=== PATIENT | male | born 1985 | race Two or more races ===

== ENCOUNTER 2022-03-17 11:38 | Inpatient (IN) | payer OTHER, SELFPAY ==
[2022-03-17 11:48] VITALS: BP 120/80; PULSE 68; O2SAT 97
[2022-03-17 11:58] VITALS: BP 121/81; PULSE 76; RESP 18; TEMP 36.6; O2SAT 99; BMI 25.0
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
[2022-03-17] MEDS: LORazepam 1 MG TABLET PO (12:27)
[2022-03-17 12:51] LABS: Barbiturates, Urine Not Detected (Not Detect); Benzodiazepines Screen Urine Not Detected (Not Detect); Cannabinoid Screen Urine POSITIVE (Not Detect); Cocaine Screen Urine Not Detected (Not Detect); Fentanyl, urine Not Detected (Not Detect); Opiate Screen Urine Not Detected (Not Detect); Phencyclidine Screen Urine Not Detected (Not Detect)
[2022-03-17 12:56] LABS: Amphetamine Screen Urine Not Detected (Not Detect)
[2022-03-17 12:57] LABS: COVID-19 Test Negative (Negative); IDNOW Serial# 08D9AD1C
[2022-03-17 13:18] LABS: MANUAL DIFF FLAG NO
[2022-03-17 13:21] LABS: Basophils Percent Auto 0.5 % (0-2); Eosinophils Percent Auto 0.7 % (0-4); Hematocrit 44.8 % (42.0-52.0); Hemoglobin 15.4 g/dl (14.0-18.0); Imm Gran Abs Auto 0.01 X10*3/uL (0.00-0.03); Imm Gran Pct Auto 0.2 % (0.0-0.4); Lymphocytes Absolute Auto 1.4 X10*3/uL (1.2-4.9); Lymphocytes Percent Auto 24.8 % (20-40); Mean Corpuscular HGB Conc 34.4 g/dl (31.0-36.0); Mean Corpuscular Hemoglobin 31.5 pg (27.0-33.0); Mean Corpuscular Volume 91.6 fL (80.0-98.0); Mean Platelet Volume 8.8 fL (9.4-12.4); Monocytes Absolute Auto 0.4 X10*3/uL (0.1-1.2); Monocytes Percent Auto 6.3 % (2-11); Neutrophils Absolute Auto 3.8 x10*3/uL (2.0-8.3); Neutrophils Percent Auto 67.5 % (45-73); Platelet Count 251 X10*3/uL (160-400); Red Blood Count 4.89 X10*6/uL (4.60-5.80); Red Cell Distribution Width 12.6 % (11.0-16.0); White Blood Count 5.6 X10*3/uL (4.8-10.8)
[2022-03-17 13:51] LABS: Alanine Aminotransferase 20 U/L (0-40); Albumin Level 4.1 g/dL (3.5-5.0); Alkaline Phosphatase 61 U/L (39-117); Anion Gap 10 (12-20); Aspartate Amino Transferase 18 U/L (5-37); Bilirubin Direct 0.7 mg/dL (0.0-0.5); Blood Urea Nitrogen 15 mg/dL (9-16); Calcium 8.9 mg/dL (8.4-10.2); Carbon Dioxide 25 mmol/L (22-29); Chloride 105 mmol/L (96-108); Creatinine Clr Calc Pharmacy 124.7; Estimated Glomerular Filt Rate > 60; Ethanol < 10 mg/dL; Glucose Random 73 mg/dL (60-115); Sodium 136 mmol/L (135-145); Total Protein 6.9 g/dL (6.5-8.0)
--- NOTE | 2022-03-17 15:39 | PC.NURSE ---
Nurse to Nurse given to Kasandra Alcala RN (M5 Clinical Coordinator). Plan for M5 admission, awaiting room assignment.
[2022-03-17 15:42] VITALS: BP 102/51; PULSE 62; RESP 15; TEMP 36.6; O2SAT 100
--- NOTE | 2022-03-17 18:00 | PC.NURSE ---
Patient was on the phone with his (Emma Ramsey). Phone was then passed to this RN. Emma stated to this RN have the public health social worker call me. He can't get any medications, or nothing without my permission! I know that, so take my phone number! Emma's #: . Emma aware of plan to admit Mckinley to M5, with consent to discuss by Mckinley. Emma stated good! I don't want him home, and I don't want him anywhere near me! I'm gonna bring him some clothes and a book because he's [employer] and I'll drop it off . Phone then given back to Mckinley.
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
[2022-03-17] MEDS: traZODone HCL 50 MG TABLET PO (21:06)
[2022-03-18 06:00] VITALS: BP 109/62; PULSE 71; RESP 16; TEMP 36.5; O2SAT 100
[2022-03-18] MEDS: hydrOXYzine HCL 25 MG TABLET PO (08:17)
[2022-03-18 08:36] LABS: Alanine Aminotransferase 21 U/L (0-40); Albumin Level 4.2 g/dL (3.5-5.0); Alkaline Phosphatase 61 U/L (39-117); Anion Gap 12 (12-20); Aspartate Amino Transferase 19 U/L (5-37); Bilirubin Total 2.4 mg/dL (0.0-1.0); Blood Urea Nitrogen 18 mg/dL (9-16); Calcium 8.9 mg/dL (8.4-10.2); Carbon Dioxide 26 mmol/L (22-29); Chloride 104 mmol/L (96-108); Cholesterol 134 mg/dL; Creatinine Clr Calc Pharmacy 106.9; Estimated Glomerular Filt Rate > 60; Glucose Fasting 77 mg/dL (60-99); HDL Cholesterol 38 mg/dL; LDL Cholesterol Calculated 85 mg/dl; Potassium 4.2 mmol/L (3.3-5.1); Sodium 138 mmol/L (135-145); Total Protein 7.1 g/dL (6.5-8.0); Triglycerides 59 mg/dL
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
[2022-03-18] MEDS: lamoTRIgine 25 MG TABLET PO (15:32)
[2022-03-18 18:00] VITALS: BP 126/75; PULSE 82; RESP 14
[2022-03-18] MEDS: Prazosin HCL 1 MG CAPSULE PO (21:09)
[2022-03-18] MEDS: traZODone HCL 50 MG TABLET PO (21:09)
[2022-03-19 06:00] VITALS: BP 152/65; PULSE 81; TEMP 36.2; O2SAT 97
[2022-03-19] MEDS: lamoTRIgine 25 MG TABLET PO (08:47)
--- NOTE | 2022-03-19 13:40 | P.PNPSI_ITS ---
Subjective Subjective Date of Service: 03/19/22 Reason For Visit: SI,SEC 12 PER EMS Interim History: Patient reports that he is feeling better. His came to the unit to visit him yesterday and he says it was a positive interaction. She says she no longer wants a divorce. He was happy to hear this however is holding off being to excited about it for now. Patient reports that he slept well last night and no nightmares. He denies any SI at all and reiterates that he feels really selfish, really guilty for his attempt; he referred to his children and how awful a would be to have made them father less. Patient reports medications are well tolerated. Patient said he would love to discharge as soon as possible but accepts that more time will be needed. Patient has a court case via zoom on 03/21 at 10:00 regarding a custody case and he wants help attending. Mental Status Exam Mental Status Exam Narrative: Pt is alert and oriented; behavior is cooperative, friendly and calm; patient is not in distress; dressed in hospital gown, head air and facial hair well groomed and with good adequate hygiene; mood is described as good and affect congruent; eye contact appropriate; Speech is normal rate, volume and prosody and not pressured; no psychomotor agitation/retardation present; thought process is organized and goal directed; Thought content is on tx and regret for recent attempt; otherwise pertinent to relevant topics and without any delusional content, paranoid ideations or grandiosity; denies any SI/HI. There is no evidence of perceptual disturbance. Patients insight and judgment appear intact. Diagnostics Vital Signs (24Hr): Vital Signs - 24 hr 03/18/22 18:00 03/19/22 06:00 Temperature 97.1 F Pulse Rate 82 81 Respiratory Rate 14 Blood Pressure 126/75 152/65 H Pulse Oximetry 97 Oxygen Delivery Method Room Air BMI result Body Mass Index 25.0 Labs Results: 03/17/22 13:13 03/18/22 08:13 Labs: Laboratory Results - last 48 hr 03/17/22 03/18/22 13:13 08:13 Sodium 136 138 Potassium 4.0 4.2 Chloride 105 104 Carbon Dioxide 25 26 Anion Gap 10 L 12 BUN 15 18 H Creatinine 0.78 0.91 Estim Creat Clear Calc 124.7 106.9 Estimated GFR > 60 > 60 Random Glucose 73 Fasting Glucose 77 Calcium 8.9 8.9 Total Bilirubin 2.0 H 2.4 H Direct Bilirubin 0.7 H AST 18 19 ALT 20 21 Alkaline Phosphatase 61 61 Total Protein 6.9 7.1 Albumin 4.1 4.2 Triglycerides 59 Cholesterol 134 LDL Cholesterol, Calc 85 HDL Cholesterol 38 Ethyl Alcohol < 10 Medications Medications Current Medications Acetaminophen (Acetaminophen 325 Mg Tablet) 650 mg PO Q6H PRN PRN Reason: Headache/Pain Mild Scale (1-3) Al Hydroxide/Mg Hydroxide (Magnesium Hydrox/Alum Hydrox 30 Ml Oral.Susp) 30 ml PO Q6H PRN PRN Reason: Heartburn/Nausea Hydroxyzine HCl (Hydroxyzine Hcl 25 Mg Tablet) 25 mg PO Q6H PRN PRN Reason: Anxiety Last Admin: 03/18/22 08:17 Dose: 25 mg Lamotrigine (Lamotrigine 25 Mg Tablet) 25 mg PO DAILY ARMIDA Last Admin: 03/19/22 08:47 Dose: 25 mg Magnesium Hydroxide (Milk Of Magnesia 30 Ml Oral.Susp) 30 ml PO DAILY PRN PRN Reason: Constipation Non-Formulary Medication ([place] Relief Throat Lozenge) 1 lozenge BUCCAL Q2H PRN PRN Reason: Sore Throat Prazosin HCl (Prazosin Hcl 1 Mg Capsule) 1 mg PO BEDTIME ARMIDA; Protocol Last Admin: 03/18/22 21:09 Dose: 1 mg Trazodone HCl (Trazodone Hcl 50 Mg Tablet) 50 mg PO BEDTIME PRN PRN Reason: Insomnia Last Admin: 03/18/22 21:09 Dose: 50 mg Allergies Allergies Allergy/AdvReac Type Severity Reaction Status Date / Time No Known Allergies Allergy Verified 03/17/22 11:57 Assessment & Plan Assessment & Plan (1) Adjustment disorder with mixed disturbance of emotions and conduct: Status: Acute Code(s): F43.25 - Adjustment disorder with mixed disturbance of emotions and conduct (2) Chronic post-traumatic stress disorder (PTSD): Status: Acute Code(s): F43.12 - Post-traumatic stress disorder, chronic (3) Bipolar II disorder: Status: Acute Code(s): F31.81 - Bipolar II disorder Plan Patient is a 36-year-old male with history of PTSD mood lability who presents for suicide attempt in the face of marital strife and other psychosocial stressors. -patient has history of trauma and ongoing PTSD symptoms which seem to cause a chronic anxiety that can sometimes become overwhelming -patient endorses history that seems to indicate bipolar type 2 disorder making this a provisional diagnosis -patient regrets his actions and is glad he is alive; is feeling very guilty that he almost made his children father less. -patient discussed treatment and screenplay writer reviewed risks/side effects of Lamictal, prazosin and trazodone. Patient wants to start a trial of these medications; patient said he would also like a therapist and outpatient prescriber. Patient also gave permission to talk to his friend Garrett flowers and his current for collateral -03/19 mood has improved; has reconciled with his and divorce is no longer pending, she said she just said this and anger. No SI at all and patient remains regretful. Tolerating medications well. He remains eager for therapist post discharge. Patient has a history of impulsivity and while this attempt was lethal, and planned starting earlier that day, it was enacted during a time of extreme emotional distress which at this point has fully resolved. Patient has a 3 day notice in and would like to discharge, saying that he is safe and has no SI at all, very regretful for his actions. 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 So far he has remained stable, has good insight and improved judgment and demonstrating good behavioral and impulse control. Education Specialist will gather collateral. If patient remains stable and collateral does not reveal anything unexpected, will likely discharge patient early next week as it appears he is no longer an imminent risk for harm to self or others and does not rise to the level of involuntary commitment. Plan: Q 15 minute checks 3 day notice Start Lamictal 25 mg daily Start prazosin 1 mg q.h.s. for nightmares Continue hydroxyzine p.r.n. for anxiety which patient said was helpful Will gather collateral Social work to help set up outpatient support I spent minutes with the patient and/or on the patient floor today, greater than?50% of which was spent counseling/coordinating care. Patient educated on: diagnosis, medication risk/benefits and therapeutic strategies Informed Consent: understands Reason for contiued inpatient stay Substantial Risk for: rapid decompensation
[2022-03-19 18:00] VITALS: BP 121/64; PULSE 90; RESP 16; O2SAT 98
[2022-03-19] MEDS: traZODone HCL 50 MG TABLET PO (20:14)
[2022-03-19] MEDS: Prazosin HCL 1 MG CAPSULE PO (20:14)
[2022-03-20] MEDS: traZODone HCL 50 MG TABLET PO ×2 (00:08→22:02)
[2022-03-20 06:00] VITALS: BP 127/58; PULSE 99; TEMP 36.4; O2SAT 99
[2022-03-20] MEDS: lamoTRIgine 25 MG TABLET PO (08:50)
--- NOTE | 2022-03-20 18:04 | HO.PSYCHPN ---
Subjective Subjective Date of Service: 03/20/22 Reason For Visit: SI,SEC 12 PER EMS Interim History: Patient reports good mood, no SI, remains feeling that all these emotions and things are behind him and resolved. Continues to express gratitude that he is doing well and his loving concern for his children. Some frustration with his current and he thinks that she might be having a manic episode as she has not slept for a few days. Patient asks for help getting to zoom meeting for court tomorrow. He feels he has been able to process his relationship and remains accepting that the relationship may be over and that it may be best that way. Tolerating medications well; sleeping well. Reiterates he would like to go as soon as possible but very much wants a therapist in outpatient prescriber [employer] briefly talked to Emma his but phone call was cut off and television script writer could not get a hold of her again. [employer] also called Florin[employer], patient's friend for collateral but his phone service is shut off Patient gave television script writer permission to call his mother said she knows him well and would probably be a good source of collateral. He gave television script writer his mother's name and number. Mental Status Exam Mental Status Exam Narrative: Pt is alert and oriented; behavior is cooperative, friendly and calm; patient is not in distress; dressed in hospital gown, head air and facial hair well groomed and with good adequate hygiene; mood is described as good and affect congruent; eye contact appropriate; Speech is normal rate, volume and prosody and not pressured; no psychomotor agitation/retardation present; thought process is organized and goal directed; Thought content is on tx and regret for recent attempt; otherwise pertinent to relevant topics and without any delusional content, paranoid ideations or grandiosity; denies any SI/HI. There is no evidence of perceptual disturbance. Patients insight and judgment are intact. Diagnostics Vital Signs (24Hr): Vital Signs - 24 hr 03/20/22 06:00 Temperature 97.5 F Pulse Rate 99 Blood Pressure 127/58 L Pulse Oximetry 99 Oxygen Delivery Method Room Air BMI result Body Mass Index 25.0 Labs Results: 03/17/22 13:13 03/18/22 08:13 Medications Medications Current Medications Acetaminophen (Acetaminophen 325 Mg Tablet) 650 mg PO Q6H PRN PRN Reason: Headache/Pain Mild Scale (1-3) Al Hydroxide/Mg Hydroxide (Magnesium Hydrox/Alum Hydrox 30 Ml Oral.Susp) 30 ml PO Q6H PRN PRN Reason: Heartburn/Nausea Hydroxyzine HCl (Hydroxyzine Hcl 25 Mg Tablet) 25 mg PO Q6H PRN PRN Reason: Anxiety Last Admin: 03/18/22 08:17 Dose: 25 mg Lamotrigine (Lamotrigine 25 Mg Tablet) 25 mg PO DAILY ARMIDA Last Admin: 03/20/22 08:50 Dose: 25 mg Magnesium Hydroxide (Milk Of Magnesia 30 Ml Oral.Susp) 30 ml PO DAILY PRN PRN Reason: Constipation Non-Formulary Medication ([place] Relief Throat Lozenge) 1 lozenge BUCCAL Q2H PRN PRN Reason: Sore Throat Prazosin HCl (Prazosin Hcl 1 Mg Capsule) 1 mg PO BEDTIME ARMIDA; Protocol Last Admin: 03/19/22 20:14 Dose: 1 mg Trazodone HCl (Trazodone Hcl 50 Mg Tablet) 50 mg PO BEDTIME PRN PRN Reason: Insomnia Last Admin: 03/20/22 00:08 Dose: 50 mg Allergies Allergies Allergy/AdvReac Type Severity Reaction Status Date / Time No Known Allergies Allergy Verified 03/17/22 11:57 Assessment & Plan Assessment & Plan (1) Adjustment disorder with mixed disturbance of emotions and conduct: Status: Acute Code(s): F43.25 - Adjustment disorder with mixed disturbance of emotions and conduct (2) Chronic post-traumatic stress disorder (PTSD): Status: Acute Code(s): F43.12 - Post-traumatic stress disorder, chronic (3) Bipolar II disorder: Status: Acute Code(s): F31.81 - Bipolar II disorder Plan Patient is a 36-year-old male with history of PTSD mood lability who presents for suicide attempt in the face of marital strife and other psychosocial stressors. -patient has history of trauma and ongoing PTSD symptoms which seem to cause a chronic anxiety that can sometimes become overwhelming -patient endorses history that seems to indicate bipolar type 2 disorder making this a provisional diagnosis -patient regrets his actions and is glad he is alive; is feeling very guilty that he almost made his children father less. -patient discussed treatment and television script writer reviewed risks/side effects of Lamictal, prazosin and trazodone. Patient wants to start a trial of these medications; patient said he would also like a therapist and outpatient prescriber. Patient also gave permission to talk to his friend Garrett [employer] and his current for collateral -03/19 mood has improved; has reconciled with his and divorce is no longer pending, she said she just said this and anger. No SI at all and patient remains regretful. Tolerating medications well. He remains eager for therapist post discharge. Patient has a history of impulsivity and while this attempt was lethal, and planned starting earlier that day, it was enacted during a time of extreme emotional distress which at this point has fully resolved. Patient has a 3 day notice in and would like to discharge, saying that he is safe and has no SI at all, very regretful for his actions. 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 So far he has remained stable, has good insight and improved judgment and demonstrating good behavioral and impulse control. [employer] will gather collateral. If patient remains stable and collateral does not reveal anything unexpected, will likely discharge patient early next week as it appears he is no longer an imminent risk for harm to self or others and does not rise to the level of involuntary commitment. 03/20 patient remains stable, good mood no SI; engaged in 1 on 1 sessions, attends group, remains in good behavioral and impulse control and appropriate with peers and staff. Tolerating medications well, sleeping and eating well. [employer] is having trouble getting hold of collateral. Patient reports that the emotional dysregulation of last week remains fully resolved; he also consistently talks about continuing treatment post discharge. Patient is very likely at baseline. [employer] would like to get collateral to complete the picture however as patient has 3 day notice approaches, and he remains stable, will very likely proceed with discharge. Plan: Q 15 minute checks 3 day notice Continue Lamictal 25 mg daily Continue prazosin 1 mg q.h.s. for nightmares Continue hydroxyzine p.r.n. for anxiety which patient said was helpful Will gather collateral Social work to help set up outpatient support I spent minutes with the patient and/or on the patient floor today, greater than?50% of which was spent counseling/coordinating care. Patient educated on: diagnosis, medication risk/benefits and therapeutic strategies Informed Consent: understands Reason for contiued inpatient stay Substantial Risk for: stable for discharge
[2022-03-20 21:55] VITALS: BP 146/63; PULSE 98; TEMP 36.8; O2SAT 98
[2022-03-20] MEDS: Prazosin HCL 1 MG CAPSULE PO (22:02)
[2022-03-21 06:00] VITALS: BP 128/62; PULSE 83; RESP 16; TEMP 36.3; O2SAT 99
[2022-03-21] MEDS: lamoTRIgine 25 MG TABLET PO (08:41)
--- NOTE | 2022-03-21 15:33 | HO.PSYCHPN ---
Subjective Subjective Date of Service: 03/21/22 Reason For Visit: SI,SEC 12 PER EMS Interim History: Patient remains in good mood. No SI; bright affect and future oriented. Patient is looking forward to discharge tomorrow. Mill Laborer spoke with his mother who says he does not own any guns has no Other history Of using guns. Patient informed telegraphic typewriter operator that his was Just psychiatrically hospitalized. Patient continues to feel at peace with their relationship and it is ambiguous outcome Mental Status Exam Mental Status Exam Narrative: Pt is alert and oriented; behavior is cooperative, friendly and calm; patient is not in distress; dressed in hospital gown, head air and facial hair well groomed and with good adequate hygiene; mood is described as good and affect congruent, brighter; eye contact appropriate; Speech is normal rate, volume and prosody and not pressured; no psychomotor agitation/retardation present; thought process is organized and goal directed; Thought content is on tx and regret for recent attempt; otherwise pertinent to relevant topics and without any delusional content, paranoid ideations or grandiosity; denies any SI/HI. There is no evidence of perceptual disturbance. Patients insight and judgment are intact. Diagnostics Vital Signs (24Hr): Vital Signs - 24 hr 03/20/22 21:55 03/21/22 06:00 Temperature 98.2 F 97.4 F Pulse Rate 98 83 Respiratory Rate 16 Blood Pressure 146/63 H 128/62 Pulse Oximetry 98 99 Oxygen Delivery Method Room Air BMI result Body Mass Index 25.0 Labs Results: 03/17/22 13:13 03/18/22 08:13 Medications Medications Current Medications Acetaminophen (Acetaminophen 325 Mg Tablet) 650 mg PO Q6H PRN PRN Reason: Headache/Pain Mild Scale (1-3) Al Hydroxide/Mg Hydroxide (Magnesium Hydrox/Alum Hydrox 30 Ml Oral.Susp) 30 ml PO Q6H PRN PRN Reason: Heartburn/Nausea Hydroxyzine HCl (Hydroxyzine Hcl 25 Mg Tablet) 25 mg PO Q6H PRN PRN Reason: Anxiety Last Admin: 03/18/22 08:17 Dose: 25 mg Lamotrigine (Lamotrigine 25 Mg Tablet) 25 mg PO DAILY ARMIDA Last Admin: 03/21/22 08:41 Dose: 25 mg Magnesium Hydroxide (Milk Of Magnesia 30 Ml Oral.Susp) 30 ml PO DAILY PRN PRN Reason: Constipation Non-Formulary Medication ([place] Relief Throat Lozenge) 1 lozenge BUCCAL Q2H PRN PRN Reason: Sore Throat Prazosin HCl (Prazosin Hcl 1 Mg Capsule) 1 mg PO BEDTIME ARMIDA; Protocol Last Admin: 03/20/22 22:02 Dose: 1 mg Trazodone HCl (Trazodone Hcl 50 Mg Tablet) 50 mg PO BEDTIME PRN PRN Reason: Insomnia Last Admin: 03/20/22 22:02 Dose: 50 mg Allergies Allergies Allergy/AdvReac Type Severity Reaction Status Date / Time No Known Allergies Allergy Verified 03/17/22 11:57 Assessment & Plan Assessment & Plan (1) Adjustment disorder with mixed disturbance of emotions and conduct: Status: Acute Code(s): F43.25 - Adjustment disorder with mixed disturbance of emotions and conduct (2) Chronic post-traumatic stress disorder (PTSD): Status: Acute Code(s): F43.12 - Post-traumatic stress disorder, chronic (3) Bipolar II disorder: Status: Acute Code(s): F31.81 - Bipolar II disorder Plan Patient is a 36-year-old male with history of PTSD mood lability who presents for suicide attempt in the face of marital strife and other psychosocial stressors. -patient has history of trauma and ongoing PTSD symptoms which seem to cause a chronic anxiety that can sometimes become overwhelming -patient endorses history that seems to indicate bipolar type 2 disorder making this a provisional diagnosis -patient regrets his actions and is glad he is alive; is feeling very guilty that he almost made his children father less. -patient discussed treatment and telegraphic typewriter operator reviewed risks/side effects of Lamictal, prazosin and trazodone. Patient wants to start a trial of these medications; patient said he would also like a therapist and outpatient prescriber. Patient also gave permission to talk to his friend Garrett [employer] and his current for collateral -03/19 mood has improved; has reconciled with his and divorce is no longer pending, she said she just said this and anger. No SI at all and patient remains regretful. Tolerating medications well. He remains eager for therapist post discharge. Patient has a history of impulsivity and while this attempt was lethal, and planned starting earlier that day, it was enacted during a time of extreme emotional distress which at this point has fully resolved. Patient has a 3 day notice in and would like to discharge, saying that he is safe and has no SI at all, very regretful for his actions. 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 So far he has remained stable, has good insight and improved judgment and demonstrating good behavioral and impulse control. [employer] will gather collateral. If patient remains stable and collateral does not reveal anything unexpected, will likely discharge patient early next week as it appears he is no longer an imminent risk for harm to self or others and does not rise to the level of involuntary commitment. 03/20 patient remains stable, good mood no SI; engaged in 1 on 1 sessions, attends group, remains in good behavioral and impulse control and appropriate with peers and staff. Tolerating medications well, sleeping and eating well. [employer] is having trouble getting hold of collateral. Patient reports that the emotional dysregulation of last week remains fully resolved; he also consistently talks about continuing treatment post discharge. Patient is very likely at baseline. [employer] would like to get collateral to complete the picture however as patient has 3 day notice approaches, and he remains stable, will very likely proceed with discharge. 03/21 Patient remains stable, in good mood, with bright affect and future oriented. His mother confirms that he has no other history with using guns and to her knowledge has no guns at the house. Patient would like to discharge tomorrow and his 3 day notice is pending. Patient is grateful for help, we says will continue taking medication and is looking forward to starting therapy as an outpatient. Mill Laborer agrees that patient's episode of mood dysregulation has and remains fully resolved. Patient is not in imminent risk for harm to self or others and his request for discharge honored. Plan: Q 15 minute checks 3 day notice Continue Lamictal 25 mg daily Continue prazosin 1 mg q.h.s. for nightmares Continue hydroxyzine p.r.n. for anxiety which patient said was helpful Will gather collateral Social work to help set up outpatient support I spent minutes with the patient and/or on the patient floor today, greater than?50% of which was spent counseling/coordinating care. Patient educated on: diagnosis and therapeutic strategies Informed Consent: understands Reason for contiued inpatient stay Substantial Risk for: stable for discharge
[2022-03-21 18:35] VITALS: BP 119/77; PULSE 86; RESP 14
[2022-03-21] MEDS: traZODone HCL 50 MG TABLET PO (22:40)
[2022-03-21] MEDS: Prazosin HCL 1 MG CAPSULE PO (22:40)
[2022-03-22 06:00] VITALS: BP 124/64; PULSE 92; RESP 16; TEMP 36.3; O2SAT 99
[2022-03-22] MEDS: lamoTRIgine 25 MG TABLET PO (08:01)
--- NOTE | 2022-03-22 09:31 | PM.PSYDC ---
DS: Providers Provider Date of Service: 03/22/22 Date of admission: 03/17/22 17:52 Date of discharge: 03/22/22 Primary care physician: None Physician Attending physician on admission: Al Delgado Attending physician on discharge: Al Delgado DS: Diagnosis Discharge Diagnosis (1) Adjustment disorder with mixed disturbance of emotions and conduct: Status: Acute (2) Chronic post-traumatic stress disorder (PTSD): Status: Acute (3) Bipolar II disorder: Status: Acute DS: Medications Discharge Medications Home Medications: Previous Rx's Medication Instructions Recorded hydroxyzine HCl 25 mg tablet 25 mg PO Q6H PRN Anxiety 30 days 03/22/22 #60 tabs lamotrigine 100 mg tablet 100 mg PO DAILY 30 days #30 tabs 03/22/22 (Lamictal) lamotrigine 25 mg tablet See Rx Instructions .Route 03/22/22 .COMPLEX 24 days #38 tabs prazosin 1 mg capsule 1 mg PO BEDTIME 30 days #30 caps 03/22/22 trazodone 50 mg tablet 50 mg PO BEDTIME PRN Insomnia 30 03/22/22 days #30 tabs Mental Status Exam Mental Status Exam Narrative: Pt is alert and oriented; behavior is cooperative, friendly and calm; patient is not in distress; dressed in hospital gown, head air and facial hair well groomed and with good adequate hygiene; mood is described as good and affect congruent, bright; eye contact appropriate; Speech is normal rate, volume and prosody and not pressured; no psychomotor agitation/retardation present; thought process is organized and goal directed; Thought content is on tx and regret for recent attempt; otherwise pertinent to relevant topics and without any delusional content, paranoid ideations or grandiosity; denies any SI/HI. There is no evidence of perceptual disturbance. Patients insight and judgment are intact. Data Data Completed and Pending Completed studies during hospitalization [Text1]: 03/17/22 03/17/22 03/17/22 12:27 12:27 13:13 WBC 5.6 RBC 4.89 Hgb 15.4 Hct 44.8 MCV 91.6 MCH 31.5 MCHC 34.4 RDW 12.6 Plt Count 251 MPV 8.8 L Immature Gran % (Auto) 0.2 Neut % (Auto) 67.5 Lymph % (Auto) 24.8 [place] % (Auto) 6.3 Eos % (Auto) 0.7 Baso % (Auto) 0.5 Lymph # (Auto) 1.4 [place] # (Auto) 0.4 Eos # (Auto) 0.0 Baso # (Auto) 0.0 Abs Immat Gran (auto) 0.01 Absolute Neuts (auto) 3.8 Absolute Nucleated RBC 0.000 Nucleated RBC % (auto) 0.0 Sodium Potassium Chloride Carbon Dioxide Anion Gap BUN Creatinine Estim Creat Clear Calc Estimated GFR Random Glucose Fasting Glucose Calcium Total Bilirubin Direct Bilirubin AST ALT Alkaline Phosphatase Total Protein Albumin Triglycerides Cholesterol LDL Cholesterol, Calc HDL Cholesterol Urine Opiates Screen Not Detected Urine Fentanyl Screen Not Detected Ur Barbiturates Screen Not Detected Ur Phencyclidine Scrn Not Detected Ur Amphetamines Screen Not Detected U Benzodiazepines Scrn Not Detected Urine Cocaine Screen Not Detected U Marijuana (THC) Screen POSITIVE H Ethyl Alcohol COVID-19 (RYAN) Negative COVID-19 ADINCON Com See Note 03/17/22 03/18/22 13:13 08:13 WBC RBC Hgb Hct MCV MCH MCHC RDW Plt Count MPV Immature Gran % (Auto) Neut % (Auto) Lymph % (Auto) [place] % (Auto) Eos % (Auto) Baso % (Auto) Lymph # (Auto) [place] # (Auto) Eos # (Auto) Baso # (Auto) Abs Immat Gran (auto) Absolute Neuts (auto) Absolute Nucleated RBC Nucleated RBC % (auto) Sodium 136 138 Potassium 4.0 4.2 Chloride 105 104 Carbon Dioxide 25 26 Anion Gap 10 L 12 BUN 15 18 H Creatinine 0.78 0.91 Estim Creat Clear Calc 124.7 106.9 Estimated GFR > 60 > 60 Random Glucose 73 Fasting Glucose 77 Calcium 8.9 8.9 Total Bilirubin 2.0 H 2.4 H Direct Bilirubin 0.7 H AST 18 19 ALT 20 21 Alkaline Phosphatase 61 61 Total Protein 6.9 7.1 Albumin 4.1 4.2 Triglycerides 59 Cholesterol 134 LDL Cholesterol, Calc 85 HDL Cholesterol 38 Urine Opiates Screen Urine Fentanyl Screen Ur Barbiturates Screen Ur Phencyclidine Scrn Ur Amphetamines Screen U Benzodiazepines Scrn Urine Cocaine Screen U Marijuana (THC) Screen Ethyl Alcohol < 10 COVID-19 (RYAN) COVID-19 Clin Com DS: Summary Hospital Course Hospital Course: HPI: Patient is a 36-year-old male with history of PTSD mood lability who presents for suicide attempt in the face of marital strife and other psychosocial stressors.? -patient has history of trauma and ongoing PTSD symptoms which seem to cause a chronic anxiety that can sometimes become overwhelming -patient endorses history that seems to indicate bipolar type 2 disorder making this a provisional diagnosis -patient regrets his actions and is glad he is alive; is feeling very guilty that he almost made his children father less. -patient discussed treatment and information writer reviewed risks/side effects of Lamictal, prazosin and trazodone (information writer reviewed risks/side effects of these medications with patient who understood and wanted to continue).? Patient wants to start a trial of these medications; patient said he would also like a therapist and outpatient prescriber.? Patient also gave permission to talk to his friend Florin and Emma for collateral Hospital course: On admission, patient was calm, cooperative and friendly. He was a little down but overall glad to be alive, more hopeful and without any SI at all. He felt ready for discharge however agreed to remain on the unit treatment. Throughout patient's stay he was in good behavioral and impulse control, appropriate with peers and staff and engaged in therapy. Patient's mood quickly improved and he reconciled with his and divorce is no longer pending; that said, he was also approaching the situation sober early and was unsure if the 2 were compatible to remain but that he had made peace with this possibility. As mentioned above, Patient agreed to start Lamictal; information writer thoroughly reviewed risks/side effects of this medication which patient ask questions about and understood. Patient tolerated medications well and nightmares resolved on prazosin;?patient slept well intermittently using trazodone hand was with good appetite. Patient has a history of impulsivity and while this attempt was lethal, and planned starting earlier that day, it was enacted during a time of extreme emotional distress which at this point has fully resolved.? Patient has a 3 day notice in and would like to discharge, saying that he is safe and has no SI at all, very regretful for his actions.? 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 Box Toe Cutter was not able to connect with his or friend however did speak with his mother who confirmed that he has no other history with using guns and to her knowledge has no guns at the house. Patient's 3 day notice coming due. Patient remains stable, in good mood, with bright affect and future oriented.? Patient expresses gratitude for the help and feels medications have been helpful and plans continue taking them; he is looking forward to starting therapy as an outpatient. Box Toe Cutter agrees that patient's episode of mood dysregulation has and remains fully resolved.? Patient is not in imminent risk for harm to self or others and his request for discharge honored. Time spent discussing smoking cessation with patient: 3 to 10 minutes Status at Discharge Functional status at discharge: independent ambulation Overall status at discharge: patient is back to baseline Time Spent with Patient Time attestation: Total time spent providing and/or coordinating discharge services: Time spent: Greater than 30 minutes Discharge Plan Discharge Patient Disposition: Home, Self-Care Discharge Diagnosis: Adjustment disorder with mixed disturbance of emotions and conduct, fully resolved Referrals: Therapy Intake: Meera Nguyen [Other] - 03/23/22 11:00 am (This appointment is in-person. You must attend the therapy intake appointment to be referred for psychiatric medication management services within 30 days of your hospital discharge) [facility] [Other] - 1 Week (PT. IS TO FOLLOW-UP WITH [facility] IN [place] A NEW PT. PT. HASN'T BEEN SEEN THERE SINCE 2019. PT. IS AWARE OF THIS AND PROMISE TO FOLLOW -UP . [phone]) Discharge Medications: New prazosin 1 mg Capsule 1 mg PO BEDTIME 30 Days Qty: 30 1RF Protocol: Hold for SBP< HOLD for SBP < : 90 hydroxyzine HCl 25 mg Tablet 25 mg PO Q6H PRN (Reason: Anxiety) 30 Days Qty: 60 1RF lamotrigine 25 mg Tablet See Rx Instructions .ROUTE .COMPLEX 24 Days Qty: 38 0RF Rx Instructions: take 25 mg daily for 10 more days, than take 50mg daily for 2 weeks (then take 100mg daily) trazodone 50 mg Tablet 50 mg PO BEDTIME PRN (Reason: Insomnia) 30 Days Qty: 30 1RF lamotrigine [Lamictal] 100 mg tablet 100 mg PO DAILY 30 Days Qty: 30 0RF Rx Instructions: DO NOT FILL BEFORE 04/11/22 Discharge Orders: Discharge Order (Routine); Ordered 03/22/22 Ordered By: Al Delgado Diet: Regular diet Activity on Discharge: As tolerated Stand Alone Forms: Patient Portal Discharge page Care Plan Goals: Maintain mood and safe behaviors Take medications as prescribed Practice coping skills Continue with outpatient providers and reach out to them as needed Health Concerns: Mood stability and behaviors Plan of Treatment: Follow up with your psychiatric provider and other outpatient providers regarding above concerns Take medications as prescribed Assessment: Risk assessment at time of discharge:? Patient was interviewed prior to discharge and found to be fully oriented and without any SI or HI. Patient has insight and demonstrates good judgment in terms of wanting to pursue treatment. Patient is not in imminent risk of harm to self or others and has a safety plan that includes presenting to the closest ER or calling 911 if feeling unsafe.? Patient has been observed closely by nursing and unit staff throughout admission; patient has not engaged in any behaviors that suggest dangerousness to self or others and has demonstrated appropriate behaviors and impulse control
== END 2022-03-22 11:15 | disposition home or self-care (01) | DRG 753 ==
LOC: HO.ED 16:07 → HO.PM5 18:21
PROVIDERS: Admitting Provider Psychiatry & Neurology Psychiatry; Emergency Provider Emergency Medicine; Visit Provider Psychiatry & Neurology Psychiatry
DX: F31.81 Bipolar II disorder (principal); R45.851 Suicidal ideations; F43.25 Adjustment disorder with mixed disturbance of emotions and conduct; F43.12 Post-traumatic stress disorder, chronic; Z20.822 Contact with and (suspected) exposure to COVID-19; Z79.899 Other long term (current) drug therapy
CPT/HCPCS: 36415; 80048; 80053; 80061; 80076; 80307; 82077; 85025; 87635; 99285